=== PATIENT | female | born 1995 | race Caucasian/White ===

== ENCOUNTER 2018-08-13 22:56 | Emergency (ER) | payer MEDICAID ==
[~2018-08-13] VITALS: Ht 147.3 cm; Wt 70.3 kg
[2018-08-13 23:15] VITALS: BP 128/82
--- NOTE | 2018-08-13 23:17 | NUR ---
TO LOBBY A/W BED, AMBULATORY
[2018-08-14] MEDS ORDERED: NACL 0.9% 1,000 ML IV ONE (00:10)
[2018-08-14 00:19] LABS: APPEARANCE,URINE HAZY (CLEAR); BILIRUBIN,URINE NEGATIVE (NEGATIVE); BLOOD, URINE NEGATIVE (NEGATIVE); COLOR,URINE YELLOW (YELLOW); LEUKOCYTE ESTERASE ,URINE NEGATIVE (NEGATIVE); NITRITE, URINE NEGATIVE (NEGATIVE); UGLUCOSE NEGATIVE (NEGATIVE)
[2018-08-14 00:32] LABS: RBC,URINE 0-5 /HPF (0-5)
[2018-08-14 00:33] LABS: CALCIUM OXALATE CRYSTALS,UR 0-10 /HPF (None Seen); URINE AMORPHOUS URATE 1+ /HPF (None Seen); WBC,URINE 0-5 /HPF (0-5)
--- NOTE | 2018-08-14 00:49 | NUR ---
23 Y/O F, 14 WEEKS PREGANNT, PRESENTED TO ED WITH C/O CRAMPING AND LOWER ABDOMINAL PAIN X2 DAYS. 4/10 PAIN, CRAMPING AND ACHING. DENIES VAGINAL BLEEDING. ERMD NOTIFIED. WILL CONTINUE TO MONITOR.
--- NOTE | 2018-08-14 01:53 | NUR ---
Patient discharged with v/s stable. Written and verbal after care instructions given and explained. Patient verbalized understanding. Ambulatory with steady gait. All questions addressed prior to discharge. Advised to follow up with PMD.
== END 2018-08-14 01:53 | disposition home or self-care (01) ==
LOC: MED 22:56
DX: O26.891 Other specified pregnancy related conditions, first trimester (principal); R10.30 Lower abdominal pain, unspecified; Z3A.14 14 weeks gestation of pregnancy
CPT/HCPCS: 81001; 81025; 87086; 99283; J7030

== ENCOUNTER 2018-12-09 10:20 | Observation (INO) | payer MEDICAID ==
[~2018-12-09] VITALS: Ht 147.3 cm; Wt 68.5 kg
[2018-12-09] MEDS ORDERED: PREN-380 PO (11:01)
[2018-12-09] MEDS: FAMOTIDINE 20 MG TAB PO SCH (11:11)
== END 2018-12-09 12:50 | disposition home or self-care (01) ==
LOC: MLD 10:20
PROVIDERS: ADMIT Obstetrics & Gynecology; ATTEND Obstetrics & Gynecology
DX: O26.893 Other specified pregnancy related conditions, third trimester (principal); R10.9 Unspecified abdominal pain; Z3A.30 30 weeks gestation of pregnancy
CPT/HCPCS: 81000; G0378